=== PATIENT | female | born 1965 | race Caucasian/White ===

== ENCOUNTER 2021-10-30 10:41 | Emergency (ER) | payer OTHER ==
[~2021-10-30 10:41] MED LIST: ADVIL200 M1 PO; ALEVE220 M1 PO; ALLEGRA ALLERG180 MG PO; IBUPROFEN800 MG PO; OSTEO BI-FLEX1 EAC2 PO; PERCOCET 5-3251 EACH PO; PROBIOTIC1 EAC3 PO; ZOFRAN8 MG PO
[2021-10-30 11:23] LABS: BILIRUBIN NEGATIVE (NEGATIVE); BLOOD NEGATIVE Ery/uL (NEGATIVE); CLARITY CLEAR (CLEAR); COLOR YELLOW (YELLOW); GLUCOSE (U) NORMAL (NORMAL); LEUKOCYTES NEGATIVE Leu/uL (NEGATIVE); NITRITE NEGATIVE (NEGATIVE); PROTEIN NEGATIVE (NEGATIVE); SPECIFIC GRAVITY <=1.005 (1.001-1.030); UROBILINOGEN 0.2 mg/dL (0.2-1.0)
[2021-10-30 11:51] LABS: BASOPHIL 0.5 % (0-2); EOSINOPHIL 1.5 % (0-5); HCT 42.1 % (37.0-47.0); HGB 13.4 g/dl (12.5-16.0); LYMPHOCYTE 23.1 % (15-48); MCH 29.8 pg (25.0-31.0); MCHC 31.8 g/dL (32.0-36.0); MCV 93.8 fL (78.0-100.0); MONOCYTE 6.8 % (0-12); MPV 10.7 fL (6.0-9.5); NEUTROPHIL 67.8 % (41-80); NRBC 0; PLT 351 K/uL (150-400); RBC 4.49 M/uL (4.20-5.40); RDW 13.3 % (11.5-14.0)
[2021-10-30 12:04] LABS: CREATININE 1.21 mg/dL (0.51-0.95); POTASSIUM 4.8 mmol/L (3.5-5.1)
[2021-10-30] MEDS ORDERED: PREDNISONE 20MG20 MG PO (12:38)
== END 2021-10-30 12:45 | disposition home or self-care (01) ==
LOC: FER 10:41
PROVIDERS: Emergency Medicine
DX: M54.50 Low back pain, unspecified (principal); N26.1 Atrophy of kidney (terminal); N17.9 Acute kidney failure, unspecified; I10 Essential (primary) hypertension; Z88.0 Allergy status to penicillin
CPT/HCPCS: 36415; 80048; 81003; 85025